=== PATIENT | female | born 1970 | race Caucasian/White ===

== ENCOUNTER 2017-12-28 07:07 | Day surgery (SDC) | payer BC ==
[~2017-12-28 07:07] MED LIST: Sodium Chloride 0.9% 10 ML Syringe FLUSH PRN; Sodium Chloride 0.9% 2.5 ML Syringe FLUSH PRN; ceFAZolin 2 GM in Premix Bag 1 BAG IV ONE
[2017-12-28] MEDS ORDERED: Rocuronium 10 MG/ML 10 ML Syringe ONE (07:09)
[2017-12-28] MEDS ORDERED: Dexamethasone 4 MG/ML 5 ML MDV ONE (07:09)
[2017-12-28] MEDS ORDERED: fentaNYL 250 MCG/5 ML SDV ONE (07:09)
[2017-12-28] MEDS ORDERED: Phenylephrine/Normal Saline 100 MCG/ML 10 ML Syringe ONE (07:09)
[2017-12-28] MEDS ORDERED: Lidocaine 2% 5 ML SDV ONE (07:09)
[2017-12-28] MEDS ORDERED: ePHEDrine 50 MG/ML SDV ONE (07:09)
[2017-12-28] MEDS ORDERED: Ketorolac 30 MG/ML SDV ONE (07:09)
[2017-12-28] MEDS ORDERED: Propofol 200 MG/20 ML SDV ONE (07:09)
[2017-12-28] MEDS ORDERED: Ondansetron 4 MG/2 ML SDV ONE (07:09)
[2017-12-28] MEDS ORDERED: Midazolam 1 MG/ML 2 ML SDV ONE (07:10)
[2017-12-28] MEDS: Lactated Ringers 1,000 ML IV SCH ×2 (07:27→20:44)
--- NOTE | 2017-12-28 07:27 | PCM.PREANE ---
Preanesthetic Assessment - Anesthesia/Transfusion/Family Hx Anesthesia History: Prior Anesthesia Without Reaction Family History of Anesthesia Reaction: No Transfusion History: No Prior Transfusion(s) - Review of Systems General: No Symptoms Pulmonary: No Symptoms Cardiovascular: No Symptoms Gastrointestinal: No Symptoms Neurological: No Symptoms Other: Reports: None - Physical Assessment NPO Status Date: 12/27/17 Height: 1.64 m Weight: 92.079 kg ASA Class: 1 Mental Status: Alert & Oriented x3 Airway Class: Mallampati = 1 Dentition: Reports: Normal Dentition ROM/Head Extension: Full Lungs: Clear to Auscultation Cardiovascular: Regular Rate - Lab Values: Laboratory Last Values WBC 7.96 K/uL (4.0-11.0) 12/27/17 16:37 RBC 4.57 M/uL (4.30-5.90) 12/27/17 16:37 Hgb 13.9 g/dL (12.0-16.0) 12/27/17 16:37 Hct 40.3 % (36.0-46.0) 12/27/17 16:37 MCV 88.2 fL (80.0-98.0) 12/27/17 16:37 MCH 30.4 pg (27.0-32.0) 12/27/17 16:37 MCHC 34.5 g/dL (31.0-37.0) 12/27/17 16:37 RDW Std Deviation 40.6 fl (28.0-62.0) 12/27/17 16:37 RDW Coeff of Adele 13 % (11.0-15.0) 12/27/17 16:37 Plt Count 267 K/uL (150-400) 12/27/17 16:37 MPV 10.50 fL (7.40-12.00) 12/27/17 16:37 Nucleated RBC % 0.0 /100WBC 12/27/17 16:37 Nucleated RBCs # 0 K/uL 12/27/17 16:37 Sodium 140 mmol/L (136-145) 12/27/17 16:37 Potassium 3.6 mmol/L (3.5-5.1) 12/27/17 16:37 Chloride 105 mmol/L (98-107) 12/27/17 16:37 Carbon Dioxide 27.0 mmol/L (21.0-32.0) 12/27/17 16:37 BUN 15 mg/dL (7.0-18.0) 12/27/17 16:37 Creatinine 1.0 mg/dL (0.6-1.0) 12/27/17 16:37 Est Cr Clr Drug Dosing 60.00 mL/min 12/27/17 16:37 Estimated GFR (MDRD) 58.9 ml/min 12/27/17 16:37 Glucose 105 mg/dL (74-106) 12/27/17 16:37 Calcium 9.2 mg/dL (8.5-10.1) 12/27/17 16:37 HCG, Qual NEGATIVE (NEG) 12/27/17 16:37 Blood Type O POSITIVE 12/27/17 16:37 Antibody Screen NEGATIVE 12/27/17 16:37 - Allergies Allergies/Adverse Reactions: Allergies Allergy/AdvReac Type Severity Reaction Status Date / Time erythromycin base Allergy Nausea and Verified 12/24/17 09:35 Vomiting - Blood Blood Available: Yes - Anesthesia Plan Pre-Op Medication Ordered: None - Acknowledgements Anesthesia Type Planned: General Anesthesia Pt an Appropriate Candidate for the Planned Anesthesia: Yes Alternatives and Risks of Anesthesia Discussed w Pt/Guardian: Yes Pt/Guardian Understands and Agrees with Anesthesia Plan: Yes PreAnesthesia Questionnaire HEENT History: Reports: Other (See Below) Other HEENT History: wears glasses Neurological History: Reports: Other (See Below) Other Neuro History: hx of motion sickness Endocrine/Metabolic History: Reports: Obesity/BMI 30+ - Past Surgical History Female Surgical History: Reports: Other (See Below) Other Female Surgeries/Procedures: TVT - SUBSTANCE USE Smoking Status *Q: Never Smoker Recreational Drug Use History: No - HOME MEDS Home Medications: Home Meds . [No Known Home Meds] 12/24/17 [History] - CURRENT (IN HOUSE) MEDS Current Meds: Current Medications Lactated Ringer's (Ringers, Lactated) 1,000 mls @ 125 mls/hr IV ASDIRECTED SYLVESTER Cefazolin Sodium/Dextrose 2 gm (/ Premix) 50 mls @ 50 mls/hr IV ONETIME ONE Stop: 12/28/17 08:59 Sodium Chloride (Saline Flush) 10 ml FLUSH ASDIRECTED PRN PRN Reason: Keep Vein Open Sodium Chloride (Saline Flush) 2.5 ml FLUSH ASDIRECTED PRN PRN Reason: Keep Vein Open Discontinued Medications Dexamethasone (Dexamethasone) Confirm Administered Dose 20 mg .ROUTE .STK-MED ONE Stop: 12/28/17 07:10 Ephedrine Sulfate (Ephedrine Sulfate) Confirm Administered Dose 50 mg .ROUTE .STK-MED ONE Stop: 12/28/17 07:10 Fentanyl (Sublimaze) Confirm Administered Dose 250 mcg .ROUTE .STK-MED ONE Stop: 12/28/17 07:10 Cefazolin Sodium/Dextrose 2 gm (/ Premix) 50 mls @ 100 mls/hr IV ONETIME ONE Stop: 12/27/17 19:29 Ketorolac Tromethamine (Toradol) Confirm Administered Dose 30 mg .ROUTE .STK- MED ONE Stop: 12/28/17 07:10 Lidocaine (Xylocaine-Mpf 2%) Confirm Administered Dose 5 ml .ROUTE .STK-MED ONE Stop: 12/28/17 07:10 Midazolam HCl (Versed 1 Mg/Ml) Confirm Administered Dose 2 mg .ROUTE .STK-MED ONE Stop: 12/28/17 07:11 Ondansetron HCl (Zofran) Confirm Administered Dose 4 mg .ROUTE .STK-MED ONE Stop: 12/28/17 07:10 Phenylephrine HCl (Phenylephrine In Ns 100 Mcg/Ml) Confirm Administered Dose 1 mg .ROUTE .STK-MED ONE Stop: 12/28/17 07:10 Propofol (Diprivan 20 Ml) Confirm Administered Dose 200 mg .ROUTE .STK-MED ONE Stop: 12/28/17 07:10 Rocuronium [place] (Zemuron) Confirm Administered Dose 100 mg .ROUTE .STK-MED ONE Stop: 12/28/17 07:10
[2017-12-28] MEDS ORDERED: Scopolamine 1.5 MG Transdermal Patch TRDERM PRN (07:28)
[2017-12-28] MEDS ORDERED: Scopolamine 1.5 MG Transdermal Patch ONE (07:33)
[2017-12-28] MEDS ORDERED: Fluorescein 5 ML Vial ONE (07:51)
[2017-12-28] MEDS ORDERED: Vasopressin 20 Units/1 ML MDV ONE (08:00)
[2017-12-28] MEDS ORDERED: ceFAZolin 2 GM in Premix Bag 1 BAG IV ONE (08:00)
[2017-12-28] MEDS ORDERED: Furosemide 40 MG/4 ML VIAL ONE (10:45)
[2017-12-28] MEDS ORDERED: Ketorolac 30 MG/ML SDV IVPUSH ONE (11:22)
[2017-12-28] MEDS ORDERED: Ondansetron 4 MG/2 ML SDV IVPUSH PRN (11:22)
[2017-12-28] MEDS ORDERED: Acetaminophen/oxyCODONE 325-5 MG Tab PO PRN ×2 (11:22)
[2017-12-28] MEDS ORDERED: Morphine 10 MG/ML Syringe IVPUSH PRN (11:22)
[2017-12-28] MEDS ORDERED: Ketorolac 30 MG/ML SDV IVPUSH PRN (11:22)
[2017-12-28] MEDS ORDERED: Promethazine 25 MG/ML SDV IM PRN (11:22)
--- NOTE | 2017-12-28 11:34 | PCM.OPNOTE ---
- General Post-Op/Procedure Note Date of Surgery/Procedure: 12/28/17 Operative Procedure(s): Total vaginal hysterectomy , Bilateral salphingectomy and cytoscopy Findings: EUA showed normal sized anteverted uterus Cytoscopy - Intact bladder , bilateral ureter jets Pre Op Diagnosis: Abnormal uterine bleeding Post-Op Diagnosis: Abnormal uterine bleeding Anesthesia Technique: General LMA Primary Surgeon: Karen Barbosa Secondary Surgeon: Evita Thompson Anesthesia Provider: Reji Arauz Pathology: Uterus , tubes Fluid Replacement, Intraop: 1,500 Output, Urine Amount: 400 EBL in mLs: 250 Complications: None Condition: Good Free Text/Narrative:: Total vaginal hysterectomy, Bilateral salphingectomy and cystoscopy done without difficulty
[2017-12-28] MEDS: HYDROmorphone 2 MG/ML SDV IVPUSH ONE ×3 (11:55→12:14)
[2017-12-28] MEDS: cefOXitin 2 GM in Premix Bag 1 BAG IV SCH ×2 (13:26→20:43)
--- NOTE | 2017-12-28 14:59 | PCM.POSTAN ---
POST ANESTHESIA ASSESSMENT - MENTAL STATUS Mental Status: Alert, Oriented - RESPIRATORY Respiratory Status: Respiratory Rate WNL, Airway Patent, O2 Saturation Stable - CARDIOVASCULAR CV Status: Pulse Rate WNL - GASTROINTESTINAL GI Status: No Symptoms - PAIN Pain Score: 3 - POST OP HYDRATION Hydration Status: Adequate & Stable - OBSERVATIONS Free Text/Narrative:: no anesthesia problems
[2017-12-28] MEDS: Metoclopramide 10 MG/2 ML SDV IVPUSH SCH (15:07)
[2017-12-28] MEDS: Acetaminophen 1,000 MG in Premix Bag 1 BAG IV SCH ×2 (15:10→21:31)
--- NOTE | 2017-12-28 23:55 | OR ---
SURGEON: VARSHA SERRANO DATE OF PROCEDURE: 12/28/2017 PREOPERATIVE DIAGNOSIS: A 47-year-old, para 3 with abnormal uterine bleeding, desiring hysterectomy. The patient declined any form of management apart from hysterectomy. POSTOPERATIVE DIAGNOSIS: A 47-year-old, para 3 with abnormal uterine bleeding, desiring hysterectomy. The patient declined any form of management apart from hysterectomy. PROCEDURE: Total vaginal hysterectomy, bilateral salpingectomy, and cystoscopy. ESTIMATED BLOOD LOSS: 250. INTRAVENOUS FLUID: 1500. URINE OUTPUT: 400, clear urine at the end of the procedure. SPECIMEN: Uterus to pathology. . FINDINGS: Examination under anesthesia showed a normal-sized anteverted uterus. No adnexal masses.Cytoscopy show intact bladder with bilateral ureteral jets DESCRIPTION OF PROCEDURE: The patient was taken to the operating room with IV fluids running and pneumatic stockings applied to the lower extremities. General anesthesia was performed without difficulty. The patient was placed in dorsal lithotomy position with Gautam stirrups. The buttocks were positioned slightly over the edge of the table. Examination under anesthesia revealed the findings noted above. The patient was prepared and draped. Young catheter was inserted, and bladder was emptied. A weighted speculum was placed into the vagina. The anterior and posterior cervix was grasped with Angel tenaculum . A circumferential incision was made with the Bovie at the cervical vaginal junction. The incision was carried down into the pericervical junction allowing the cervix to separate from the vaginal mucosa. The bleeding spots were coagulated. The posterior cul-de-sac was entered into sharply with the Lopez scissors with the tip pointing towards the uterus. Clear peritoneal fluid was noted. The weighted speculum was then removed and a long tenaculum was inserted into the cul-de-sac. The uterosacral ligaments were clamped with the Maria clamps, cut, and suture ligated, then followed with the clamping , cutting and suturing of the cardinal ligaments. Significant uterine descent was noted. Then, attention was turned to entering the anterior peritoneum with gentle traction towards the cervix. The peritoneum was identified, picked up, and sharply entered. A right angle retractor was inserted into the vesicouterine space. The uterine vessels were then identified, clamped, and caught. The pedicles were then doubly ligated. The round, broad ligaments were then clamped, caught, and suture ligated. Finally, the ovarian ligament and the fallopian tubes were clamped, caught, and doubly ligated. The uterus was removed from the vagina. The fallopian tubes were then identified, and it was clamped and suture ligated. Examination of the pedicles revealed good hemostasis. The vaginal angles were sutured to the uterosacral ligament. The vaginal cuff was closed with a continuous interlocking suture in a vertical pattern. Hemostasis was noted at the end of the procedure. Attention was then paid to the bladder where cystoscopy was performed. Two bilateral jets were noted, and the bladder was noted to be intact. The vagina was inspected again and was noted to be hemostatic. All instrument and pad counts were correct x2. The patient was taken to the recovery room in stable condition. STEVE [place] /[id number] MARBELLA
[2017-12-29] MEDS: Metoclopramide 10 MG/2 ML SDV IVPUSH SCH ×2 (00:24→08:07)
[2017-12-29] MEDS: Acetaminophen 1,000 MG in Premix Bag 1 BAG IV SCH (03:05)
--- NOTE | 2017-12-29 07:07 | PCM.SURGPN ---
- General Info Date of Service: 12/29/17 Date of Surgery/Procedure: 12/28/17 POD#: 1 Post-Op Diagnosis: Total vaginal hysterectomy and bilateral salphingectomy Functional Status: Reports: Pain Controlled, Tolerating Diet, Ambulating, Urinating - Review of Systems General: Reports: No Symptoms HEENT: Reports: No Symptoms Pulmonary: Reports: No Symptoms Cardiovascular: Reports: No Symptoms Gastrointestinal: Reports: No Symptoms Genitourinary: Reports: No Symptoms Musculoskeletal: Reports: No Symptoms Skin: Reports: No Symptoms Neurological: Reports: No Symptoms Psychiatric: Reports: No Symptoms - Patient Data Vitals - Most Recent: Last Vital Signs Temp 37.2 C 12/29/17 05:35 Pulse 72 12/29/17 05:35 Resp 19 12/29/17 05:35 BP 116/55 L 12/29/17 05:35 Pulse Ox 97 12/29/17 05:35 Weight - Most Recent: 92.079 kg I&O - Last 24 Hours: Intake & Output 12/28/17 12/29/17 12/29/17 22:59 06:59 14:59 Intake Total 400 Output Total 140 Balance 260 Lab Results Last 24 Hrs: Laboratory Results - last 24 hr 12/29/17 12/29/17 Range/Units 05:25 05:25 WBC 12.77 H (4.0-11.0) K/uL RBC 3.70 L (4.30-5.90) M/uL Hgb 11.3 L (12.0-16.0) g/dL Hct 33.0 L (36.0-46.0) % MCV 89.2 (80.0-98.0) fL MCH 30.5 (27.0-32.0) pg MCHC 34.2 (31.0-37.0) g/dL RDW Std Deviation 40.4 (28.0-62.0) fl RDW Coeff of Adele 13 (11.0-15.0) % Plt Count 205 (150-400) K/uL MPV 9.90 (7.40-12.00) fL Neut % (Auto) 70.4 (48.0-80.0) % Lymph % (Auto) 22.1 (16.0-40.0) % [place] % (Auto) 7.3 (0.0-15.0) % Eos % (Auto) 0.1 (0.0-7.0) % Baso % (Auto) 0.1 (0.0-1.5) % Neut # (Auto) 9.0 H (1.4-5.7) K/uL Lymph # (Auto) 2.8 H (0.6-2.4) K/uL [place] # (Auto) 0.9 H (0.0-0.8) K/uL Eos # (Auto) 0.0 (0.0-0.7) K/uL Baso # (Auto) 0.0 (0.0-0.1) K/uL Nucleated RBC % 0.0 /100WBC Nucleated RBCs # 0 K/uL Sodium 142 (136-145) mmol/L Potassium 4.1 (3.5-5.1) mmol/L Chloride 107 (98-107) mmol/L Carbon Dioxide 29.2 (21.0-32.0) mmol/L BUN 12 (7.0-18.0) mg/dL Creatinine 1.1 H (0.6-1.0) mg/dL Est Cr Clr Drug Dosing 54.55 mL/min Estimated GFR (MDRD) 52.8 ml/min Glucose 115 H (74-106) mg/dL Calcium 8.4 L (8.5-10.1) mg/dL Med Orders - Current: Current Medications Lactated Ringer's (Ringers, Lactated) 1,000 mls @ 125 mls/hr IV ASDIRECTED [facility] Last Admin: 12/28/17 20:44 Dose: 125 mls/hr Ketorolac Tromethamine (Toradol) 30 mg IVPUSH Q6H PRN PRN Reason: Pain (severe 7-10) Stop: 01/02/18 11:23 Last Admin: 12/28/17 13:03 Dose: 30 mg Metoclopramide HCl (Reglan) 10 mg IVPUSH Q8H [facility] Last Admin: 12/29/17 00:24 Dose: 10 mg Morphine Sulfate (Morphine) 4 mg IVPUSH Q2H PRN PRN Reason: Pain (severe 7-10) Ondansetron HCl (Zofran) 4 mg IVPUSH Q6H PRN PRN Reason: Nausea/Vomiting Last Admin: 12/28/17 13:11 Dose: 4 mg Oxycodone/Acetaminophen (Percocet 325-5 Mg) 1 tab PO Q4H PRN PRN Reason: Pain (moderate 4-6) Oxycodone/Acetaminophen (Percocet 325-5 Mg) 2 tab PO Q4H PRN PRN Reason: Pain (moderate 4-6) Promethazine HCl (Phenergan) 25 mg IM Q6H PRN PRN Reason: Nausea/Vomiting Scopolamine (Transderm-Scop) 1.5 mg TRDERM Q72H PRN PRN Reason: Nausea/Vomiting Last Admin: 12/28/17 07:34 Dose: 1.5 mg Sodium Chloride (Saline Flush) 10 ml FLUSH ASDIRECTED PRN PRN Reason: Keep Vein Open Sodium Chloride (Saline Flush) 2.5 ml FLUSH ASDIRECTED PRN PRN Reason: Keep Vein Open Discontinued Medications Dexamethasone (Dexamethasone) Confirm Administered Dose 20 mg .ROUTE .STK-MED ONE Stop: 12/28/17 07:10 Ephedrine Sulfate (Ephedrine Sulfate) Confirm Administered Dose 50 mg .ROUTE .STK-MED ONE Stop: 12/28/17 07:10 Fentanyl (Sublimaze) Confirm Administered Dose 250 mcg .ROUTE .STK-MED ONE Stop: 12/28/17 07:10 Fluorescein Sodium ([place]-Fluor) Confirm Administered Dose 5 ml .ROUTE .STK-MED ONE Stop: 12/28/17 07:52 Furosemide (Lasix) Confirm Administered Dose 40 mg .ROUTE .STK-MED ONE Stop: 12/28/17 10:46 Hydromorphone HCl (Dilaudid) 2 mg IVPUSH ONETIME ONE Stop: 12/28/17 11:37 Last Admin: 12/28/17 12:14 Dose: 0.2 mg Cefazolin Sodium/Dextrose 2 gm (/ Premix) 50 mls @ 100 mls/hr IV ONETIME ONE Stop: 12/27/17 19:29 Last Admin: 12/28/17 12:48 Dose: Not Given Cefazolin Sodium/Dextrose 2 gm (/ Premix) 50 mls @ 50 mls/hr IV ONETIME ONE Stop: 12/28/17 08:59 Last Admin: 12/28/17 12:43 Dose: Not Given Cefoxitin Sodium 2 gm/ Premix 50 mls @ 100 mls/hr IV Q6H [facility] Stop: 12/28/17 20:29 Last Admin: 12/28/17 20:43 Dose: 100 mls/hr Acetaminophen 1,000 mg/ Premix 100 mls @ 400 mls/hr IV Q6H [facility] Stop: 12/29/17 03:14 Last Admin: 12/29/17 03:05 Dose: 400 mls/hr Ketorolac Tromethamine (Toradol) Confirm Administered Dose 30 mg .ROUTE .STK- MED ONE Stop: 12/28/17 07:10 Ketorolac Tromethamine (Toradol) 30 mg IVPUSH ONETIME ONE Stop: 12/28/17 11:23 Last Admin: 12/28/17 12:46 Dose: Not Given Lidocaine (Xylocaine-Mpf 2%) Confirm Administered Dose 5 ml .ROUTE .STK-MED ONE Stop: 12/28/17 07:10 Midazolam HCl (Versed 1 Mg/Ml) Confirm Administered Dose 2 mg .ROUTE .STK-MED ONE Stop: 12/28/17 07:11 Ondansetron HCl (Zofran) Confirm Administered Dose 4 mg .ROUTE .STK-MED ONE Stop: 12/28/17 07:10 Phenylephrine HCl (Phenylephrine In Ns 100 Mcg/Ml) Confirm Administered Dose 1 mg .ROUTE .STK-MED ONE Stop: 12/28/17 07:10 Propofol (Diprivan 20 Ml) Confirm Administered Dose 200 mg .ROUTE .STK-MED ONE Stop: 12/28/17 07:10 Rocuronium [place] (Zemuron) Confirm Administered Dose 100 mg .ROUTE .STK-MED ONE Stop: 12/28/17 07:10 Scopolamine (Transderm-Scop) Confirm Administered Dose 1.5 mg .ROUTE .STK-MED ONE Stop: 12/28/17 07:34 Last Admin: 12/28/17 12:47 Dose: Not Given Vasopressin (Vasopressin) Confirm Administered Dose 20 units .ROUTE .STK-MED ONE Stop: 12/28/17 08:01 - Exam Wound/Incisions: No Drainage General: Alert, Oriented HEENT: Pupils Equal Lungs: Clear to Auscultation Cardiovascular: Regular Rate, Regular Rhythm GI/Abdominal Exam: Normal Bowel Sounds Extremities: Normal Inspection Skin: Warm Psy/Mental Status: Alert - Problem List & Annotations (1) S/P vaginal hysterectomy SNOMED Code(s): 786506288, 493832216 Code(s): Z90.710 - ACQUIRED ABSENCE OF BOTH CERVIX AND UTERUS Status: Acute Current Visit: Yes - Problem List Review Problem List Initiated/Reviewed/Updated: Yes - My Orders Last 24 Hours: Active Orders 24 hr Category Date Time Status Patient Status [ADT] Routine ADT 12/28/17 07:00 Active Patient Status [ADT] Routine ADT 12/28/17 11:23 Active Notify Provider Intake and Out [RC] ASDIRECTED Care 12/28/17 11:23 Active Notify Provider Vital Signs [RC] ASDIRECTED Care 12/28/17 11:23 Active Oxygen Therapy [RC] ASDIRECTED Care 12/28/17 11:23 Active RT Incentive Spirometry [RC] Q2HWA Care 12/28/17 11:23 Active Up With Assistance [RC] PER UNIT ROUTINE Care 12/28/17 11:23 Active Up ad Gladys [RC] PER UNIT ROUTINE Care 12/28/17 11:23 Active Urinary Catheter Removal [RC] Per Unit Routine Care 12/28/17 11:23 Active Verify Patient Consent Obtain [RC] PER UNIT ROUTINE Care 12/28/17 07:00 Active Vital Signs [RC] PER UNIT ROUTINE Care 12/28/17 08:00 Active Regular Diet [DIET] Diet 12/28/17 Dinner Active Acetaminophen/oxyCODONE [Percocet 325-5 MG] Med 12/28/17 11:22 Active 1 tab PO Q4H PRN Acetaminophen/oxyCODONE [Percocet 325-5 MG] Med 12/28/17 11:22 Active 2 tab PO Q4H PRN Ketorolac [Toradol] Med 12/28/17 11:22 Active 30 mg IVPUSH Q6H PRN Lactated Ringers [Ringers, Lactated] 1,000 ml Med 12/28/17 07:00 Active IV ASDIRECTED Metoclopramide [Reglan] Med 12/28/17 16:00 Active 10 mg IVPUSH Q8H Morphine Med 12/28/17 11:22 Active 4 mg IVPUSH Q2H PRN Ondansetron [Zofran] Med 12/28/17 11:22 Active 4 mg IVPUSH Q6H PRN Promethazine [Phenergan] Med 12/28/17 11:22 Active 25 mg IM Q6H PRN Scopolamine [Transderm-Scop] Med 12/28/17 07:28 Active 1.5 mg TRDERM Q72H PRN Peripheral IV Discontinue [OM.PC] Routine Oth 12/28/17 11:23 Ordered Peripheral IV Insertion Adult [OM.PC] Urgent Oth 12/28/17 08:00 Ordered Sequential Compression Device [OM.PC] Per Unit Routine Oth 12/28/17 08:00 Ordered Sequential Compression Device [OM.PC] Per Unit Routine Oth 12/28/17 11:23 Ordered Resuscitation Status Routine Resus Stat 12/28/17 11:22 Ordered Medication Orders Lactated Ringer's (Ringers, Lactated) 1,000 mls @ 125 mls/hr IV ASDIRECTED [facility] Last Admin: 12/28/17 20:44 Dose: 125 mls/hr Infusion: 12/28/17 15:27 Dose: 125 mls/hr Admin: 12/28/17 07:27 Dose: 125 mls/hr Ketorolac Tromethamine (Toradol) 30 mg IVPUSH Q6H PRN PRN Reason: Pain (severe 7-10) Stop: 01/02/18 11:23 Last Admin: 12/28/17 13:03 Dose: 30 mg Metoclopramide HCl (Reglan) 10 mg IVPUSH Q8H [facility] Last Admin: 12/29/17 00:24 Dose: 10 mg Admin: 12/28/17 15:07 Dose: 10 mg Morphine Sulfate (Morphine) 4 mg IVPUSH Q2H PRN PRN Reason: Pain (severe 7-10) Ondansetron HCl (Zofran) 4 mg IVPUSH Q6H PRN PRN Reason: Nausea/Vomiting Last Admin: 12/28/17 13:11 Dose: 4 mg Oxycodone/Acetaminophen (Percocet 325-5 Mg) 1 tab PO Q4H PRN PRN Reason: Pain (moderate 4-6) Oxycodone/Acetaminophen (Percocet 325-5 Mg) 2 tab PO Q4H PRN PRN Reason: Pain (moderate 4-6) Promethazine HCl (Phenergan) 25 mg IM Q6H PRN PRN Reason: Nausea/Vomiting Scopolamine (Transderm-Scop) 1.5 mg TRDERM Q72H PRN PRN Reason: Nausea/Vomiting Last Admin: 12/28/17 07:34 Dose: 1.5 mg Sodium Chloride (Saline Flush) 10 ml FLUSH ASDIRECTED PRN PRN Reason: Keep Vein Open Sodium Chloride (Saline Flush) 2.5 ml FLUSH ASDIRECTED PRN PRN Reason: Keep Vein Open - Assessment Assessment (Free Text/Narrative):: 47 s/p TVH BS POD 1, stable - Plan Plan (Free Text/Narrative):: Discharge home
--- NOTE | 2017-12-29 07:47 | PCM48HPAN ---
Post Anesthesia Note - EVALUATION WITHIN 48HRS OF ANESTHETIC Vital Signs in Normal Range: Yes Patient Participated in Evaluation: Yes Respiratory Function Stable: Yes Airway Patent: Yes Cardiovascular Function Stable: Yes Hydration Status Stable: Yes Pain Control Satisfactory: Yes Nausea and Vomiting Control Satisfactory: Yes Mental Status Recovered: Yes Resp Rate: 19
== END 2017-12-29 09:30 | disposition home or self-care (01) ==
LOC: MW.SDS 07:07 → MW.MS 08:26 → MW.SDS 12-29 09:30
PROVIDERS: ATTEND Obstetrics & Gynecology
DX: N80.0 Endometriosis of uterus (principal); K59.09 Other constipation; E66.9 Obesity, unspecified; Z68.34 Body mass index [BMI] 34.0-34.9, adult; Z88.8 Allergy status to other drugs, medicaments and biological substances
CPT/HCPCS: 36415; 58262; 80048; 84703; 85025; 85027; 86850; 86900; 86901; A9270; J1100; J1170; J1885; J1940; J2250; J2405; J2765; J3010; J7120; J2704

== ENCOUNTER 2020-01-23 08:31 | Day surgery (SDC) | payer BC, OTHER ==
[~2020-01-23 08:31] MED LIST changes: +Lactated Ringers 1,000 ML IV SCH; +Sodium Chloride 0.9% 10 ML SDV IV PRN; -ceFAZolin 2 GM in Premix Bag 1 BAG IV ONE
--- NOTE | 2020-01-23 08:55 | PCM.PREANE ---
Preanesthetic Assessment - Anesthesia/Transfusion/Family Hx Anesthesia History: Prior Anesthesia Without Reaction Family History of Anesthesia Reaction: No Transfusion History: No Prior Transfusion(s) Intubation History: Unknown - Review of Systems General: No Symptoms Pulmonary: No Symptoms Cardiovascular: No Symptoms Gastrointestinal: No Symptoms, Other (screening colonoscopy) Neurological: No Symptoms Other: Reports: None - Physical Assessment Height: 5 ft 4 in Weight: 95.708 kg ASA Class: 2 Mental Status: Alert & Oriented x3 Airway Class: Mallampati = 2 Dentition: Reports: Normal Dentition Thyro-Mental Finger Breadths: 3 Mouth Opening Finger Breadths: 3 ROM/Head Extension: Full Lungs: Clear to Auscultation, Normal Respiratory Effort Cardiovascular: Regular Rate, Regular Rhythm - Allergies Allergies/Adverse Reactions: Allergies Allergy/AdvReac Type Severity Reaction Status Date / Time erythromycin base Allergy Nausea and Verified 01/18/20 14:00 Vomiting - Blood Blood Available: No - Anesthesia Plan Pre-Op Medication Ordered: None - Acknowledgements Anesthesia Type Planned: MAC Pt an Appropriate Candidate for the Planned Anesthesia: Yes Alternatives and Risks of Anesthesia Discussed w Pt/Guardian: Yes Pt/Guardian Understands and Agrees with Anesthesia Plan: Yes PreAnesthesia Questionnaire HEENT History: Reports: Other (See Below) Other HEENT History: wears glasses/contacts Gastrointestinal History: Reports: Other (See Below) Other Gastrointestinal History: occasional heartburn Musculoskeletal History: Reports: Fracture Other Musculoskeletal History: hx of fx toe Neurological History: Reports: Other (See Below) Other Neuro History: hx of motion sickness Endocrine/Metabolic History: Reports: Obesity/BMI 30+ (BMI 36.2) - Past Surgical History Head Surgeries/Procedures: Reports: None Female Surgical History: Reports: Cervical Conization, Hysterectomy, Salpingo -Oophorectomy, Other (See Below) Other Female Surgeries/Procedures: TVT - SUBSTANCE USE Smoking Status *Q: Never Smoker Recreational Drug Use History: No - HOME MEDS Home Medications: Home Meds . [No Known Home Meds] 12/24/17 [History] - CURRENT (IN HOUSE) MEDS Current Meds: Current Medications Lactated Ringer's (Ringers, Lactated) 1,000 mls @ 125 mls/hr IV ASDIRECTED SYLVESTER Discontinued Medications Lactated Ringer's (Ringers, Lactated) 1,000 mls @ 125 mls/hr IV ASDIRECTED [place] Sodium Chloride (Saline Flush) 10 ml FLUSH ASDIRECTED PRN PRN Reason: Keep Vein Open Sodium Chloride (Saline Flush) 2.5 ml FLUSH ASDIRECTED PRN PRN Reason: Keep Vein Open Sodium Chloride (Saline Flush) 10 ml FLUSH ASDIRECTED PRN PRN Reason: Keep Vein Open Sodium Chloride (Saline Flush) 2.5 ml FLUSH ASDIRECTED PRN PRN Reason: Keep Vein Open Sodium Chloride (Normal Saline) 10 ml IV ASDIRECTED PRN PRN Reason: IV Use
[2020-01-23] MEDS ORDERED: Midazolam 1 MG/ML 2 ML SDV ONE (11:09)
[2020-01-23] MEDS ORDERED: Propofol 200 MG/20 ML SDV ONE ×2 (11:09→11:37)
--- NOTE | 2020-01-23 12:05 | PCM.OPNOTE ---
- General Post-Op/Procedure Note Date of Surgery/Procedure: 01/23/20 Operative Procedure(s): Screening colonoscopy with polypectomy Findings: ascending colon polyp, sigmoid colon polyp Pre Op Diagnosis: Screening colonoscopy Post-Op Diagnosis: sigmoid colon polyp, ascending colon polyp Anesthesia Technique: [facility] [place] [place] Primary Surgeon: Barb Price Condition: Good
--- NOTE | 2020-01-23 12:15 | PCM.POSTAN ---
POST ANESTHESIA ASSESSMENT - MENTAL STATUS Mental Status: Alert, Oriented - VITAL SIGNS Vital Signs: Last Vital Signs Temp 36.8 C 01/23/20 08:50 Pulse 102 H 01/23/20 12:09 Resp 12 01/23/20 12:09 BP 139/76 01/23/20 12:09 Pulse Ox 97 01/23/20 12:09 - RESPIRATORY Respiratory Status: Respiratory Rate WNL, Airway Patent, O2 Saturation Stable - CARDIOVASCULAR CV Status: Pulse Rate WNL, Blood Pressure Stable - GASTROINTESTINAL GI Status: No Symptoms - PAIN Pain Score: 0 - POST OP HYDRATION Hydration Status: Adequate & Stable - OBSERVATIONS Free Text/Narrative:: No anesthesia problems.
--- NOTE | 2020-01-23 13:10 | PCM48HPAN ---
Post Anesthesia Note - EVALUATION WITHIN 48HRS OF ANESTHETIC Vital Signs in Normal Range: Yes Patient Participated in Evaluation: Yes Respiratory Function Stable: Yes Airway Patent: Yes Cardiovascular Function Stable: Yes Hydration Status Stable: Yes Pain Control Satisfactory: Yes Nausea and Vomiting Control Satisfactory: Yes Mental Status Recovered: Yes Vital Signs: Last Vital Signs Temp 36.8 C 01/23/20 08:50 Pulse 102 H 01/23/20 12:09 Resp 12 01/23/20 12:09 BP 139/76 01/23/20 12:09 Pulse Ox 97 01/23/20 12:09 - COMMENTS/OBSERVATIONS Free Text/Narrative:: No anesthesia problems.
--- NOTE | 2020-01-23 16:31 | OR ---
SURGEON: BARB PRICE MD DATE OF PROCEDURE: 01/23/2020 PREOPERATIVE DIAGNOSIS: Screening colonoscopy. POSTOPERATIVE DIAGNOSES: 1. Sigmoid colon polyp. 2. Ascending colon polyp. PROCEDURE PERFORMED: Screening colonoscopy with polypectomy. PRIMARY SURGEON: Barb Price MD. ANESTHESIA: MAC. INSTRUMENT USED: Olympus colonoscope. EXTENT OF EXAM: To the cecum. PREPARATION: Good. LIMITATIONS: None. INDICATIONS FOR EXAMINATION: The patient is a 49-year-old female who presents for screening colonoscopy. The patient and I discussed the procedure, expected perioperative course, and risks including bleeding, infection, or damage to surrounding structures including perforation. She verbalized understanding and wished to proceed. PROCEDURE IN DETAIL: The patient was brought into the endoscopy suite and placed on the OR cart in a left lateral decubitus position. A time-out was completed verifying the patient's name, age, date of , allergies, and procedure to be performed. Monitored anesthesia care was induced and continuous oxygen was provided via nasal cannula throughout the procedure. After adequate sedation was achieved, a digital rectal exam was performed. The exam was within normal limits. A well- lubricated colonoscope was inserted in the rectum and advanced under direct visualization to the level of the cecum. The cecum was identified by both visual and anatomic landmarks. A photograph was taken of the cecal cap, however, due to looping of the scope more proximally, I was unable to retroflex the scope within the cecum. The scope was then fully withdrawn while examining the color, texture, anatomy, and integrity of mucosa from the cecum to the anal canal. The patient was found to have a small sessile polyp within the proximal ascending colon. This was removed in piecemeal fashion using a cold biopsy forceps. The patient was also found to have a sessile polyp within the sigmoid colon. This was removed in piecemeal fashion using a cold biopsy forceps as well. The remainder of the colonic mucosa appeared normal. The scope was brought into the rectum and retroflexed to allow visualization of the anal canal opening. This appeared normal and photograph was taken. The scope was then straightened out and fully withdrawn. Cecum to anus time was 17 minutes. The patient tolerated the procedure well and was transferred to the PACU in stable condition. ENDOSCOPIC DIAGNOSES: 1. Sigmoid colon polyp. 2. Ascending colon polyp. RECOMMENDATIONS: Follow up in clinic in 2 weeks. BONI [place] /[id number]
== END 2020-01-23 12:45 | disposition home or self-care (01) ==
LOC: MW.SDS 08:31
PROVIDERS: ATTEND Surgery
DX: Z12.11 Encounter for screening for malignant neoplasm of colon (principal); D12.2 Benign neoplasm of ascending colon; E66.9 Obesity, unspecified; Z68.36 Body mass index [BMI] 36.0-36.9, adult; Z88.1 Allergy status to other antibiotic agents
CPT/HCPCS: 45380; J2250; J2704; J7120

== ENCOUNTER 2020-06-27 06:45 | Day surgery (SDC) | payer OTHER ==
[~2020-06-27 06:45] MED LIST changes: +ceFAZolin 2 GM in Premix Bag 1 BAG IV ONE
[2020-06-27] MEDS ORDERED: Scopolamine 1.5 MG Transdermal Patch TRDERM PRN (07:09)
--- NOTE | 2020-06-27 07:12 | PCM.PREANE ---
Preanesthetic Assessment - Anesthesia/Transfusion/Family Hx Anesthesia History: Prior Anesthesia Without Reaction Family History of Anesthesia Reaction: No Transfusion History: No Prior Transfusion(s) Intubation History: Unknown - Review of Systems General: No Symptoms Pulmonary: No Symptoms Cardiovascular: No Symptoms Gastrointestinal: No Symptoms, Other (denies pain today) Neurological: No Symptoms Other: Reports: None - Physical Assessment Vital Signs: Last Vital Signs Temp 36.5 C 06/27/20 06:52 Pulse 66 06/27/20 06:52 Resp 16 06/27/20 06:52 BP 140/68 06/27/20 06:52 Pulse Ox 99 06/27/20 06:52 Height: 5 ft 4 in Weight: 97.522 kg ASA Class: 5E Emergency Airway Class: Mallampati = 1 Dentition: Reports: Normal Dentition Thyro-Mental Finger Breadths: 3 Mouth Opening Finger Breadths: 3 ROM/Head Extension: Full Lungs: Clear to Auscultation, Normal Respiratory Effort Cardiovascular: Regular Rate, Regular Rhythm - Allergies Allergies/Adverse Reactions: Allergies Allergy/AdvReac Type Severity Reaction Status Date / Time erythromycin base Allergy Nausea and Verified 06/21/20 07:55 Vomiting - Blood Blood Available: No - Anesthesia Plan Pre-Op Medication Ordered: None - Acknowledgements Anesthesia Type Planned: General Anesthesia Pt an Appropriate Candidate for the Planned Anesthesia: Yes Alternatives and Risks of Anesthesia Discussed w Pt/Guardian: Yes Pt/Guardian Understands and Agrees with Anesthesia Plan: Yes PreAnesthesia Questionnaire HEENT History: Reports: Other (See Below) Other HEENT History: wears glasses/contacts Cardiovascular History: Reports: None Respiratory History: Reports: None, Other (See Below) (h/o lung nodule) Gastrointestinal History: Reports: Colon Polyp, Other (See Below) Other Gastrointestinal History: occasional heartburn, biliary dyskenesia Genitourinary History: Reports: None Musculoskeletal History: Reports: Fracture Other Musculoskeletal History: hx of fx toe Neurological History: Reports: Other (See Below) Other Neuro History: hx of motion sickness Psychiatric History: Reports: None Endocrine/Metabolic History: Reports: Obesity/BMI 30+ (BMI 36.9) Hematologic History: Reports: None Immunologic History: Reports: None Oncologic (Cancer) History: Reports: None Dermatologic History: Reports: None - Infectious Disease History Infectious Disease History: Reports: None - Past Surgical History Head Surgeries/Procedures: Reports: None HEENT Surgical History: Reports: None Cardiovascular Surgical History: Reports: None Respiratory Surgical History: Reports: None GI Surgical History: Reports: Colonoscopy Female Surgical History: Reports: Cervical Conization, Hysterectomy, Salpingo-Oophorectomy, Other (See Below) Other Female Surgeries/Procedures: TVT Endocrine Surgical History: Reports: None Neurological Surgical History: Reports: None Musculoskeletal Surgical History: Reports: None Oncologic Surgical History: Reports: None Dermatological Surgical History: Reports: None - SUBSTANCE USE Tobacco Use Status *Q: Never Tobacco User - HOME MEDS Home Medications: Home Meds . [No Known Home Meds] 12/24/17 [History] - CURRENT (IN HOUSE) MEDS Current Meds: Current Medications Lactated Ringer's (Ringers, Lactated) 1,000 mls @ 125 mls/hr IV ASDIRECTED SYLVESTER Sodium Chloride (Saline Flush) 2.5 ml FLUSH ASDIRECTED PRN PRN Reason: Keep Vein Open Sodium Chloride (Normal Saline) 10 ml IV ASDIRECTED PRN PRN Reason: IV Use Sodium Chloride (Saline Flush) 10 ml FLUSH ASDIRECTED PRN PRN Reason: Keep Vein Open Discontinued Medications Cefazolin Sodium/Dextrose 2 gm (/ Premix) 50 mls @ 100 mls/hr IV ONETIME ONE Stop: 06/24/20 11:31
[2020-06-27] MEDS ORDERED: fentaNYL 250 MCG/5 ML SDV ONE (07:17)
[2020-06-27] MEDS ORDERED: Rocuronium Bromide 50 MG/5 ML Syringe ONE (07:17)
[2020-06-27] MEDS ORDERED: Midazolam 1 MG/ML 2 ML SDV ONE (07:17)
[2020-06-27] MEDS ORDERED: Ondansetron 4 MG/2 ML SDV ONE ×2 (07:17→11:12)
[2020-06-27] MEDS ORDERED: Glycopyrrolate 0.2 MG/ML SDV ONE (07:17)
[2020-06-27] MEDS ORDERED: Lidocaine 2% 5 ML SDV ONE (07:17)
[2020-06-27] MEDS ORDERED: Propofol 200 MG/20 ML SDV ONE (07:17)
[2020-06-27] MEDS ORDERED: Bupivacaine 0.5% 30 ML SDV ONE (07:23)
[2020-06-27] MEDS ORDERED: Dexamethasone 4 MG/ML 5 ML MDV ONE (08:04)
[2020-06-27] MEDS ORDERED: ceFAZolin 1 GM Vial ONE (08:06)
[2020-06-27] MEDS ORDERED: Sodium Chloride 0.9% 20 ML ONE (08:06)
[2020-06-27] MEDS ORDERED: Albuterol 0.083% 2.5 MG/3 ML Neb Soln NEB PRN (08:44)
[2020-06-27] MEDS ORDERED: Naloxone 0.4 MG/ML Syringe IVPUSH PRN (08:44)
[2020-06-27] MEDS ORDERED: 50% Dextrose in Water 50 ML Syringe IVPUSH PRN (08:44)
[2020-06-27] MEDS ORDERED: fentaNYL 100 MCG/2 ML SDV IVPUSH PRN (08:44)
[2020-06-27] MEDS ORDERED: Atropine 0.1 MG/ML 10 ML Syringe IVPUSH PRN ×2 (08:44)
[2020-06-27] MEDS ORDERED: EPINEPHrine 1:10,000 1 MG/10 ML Syringe IVPUSH PRN (08:44)
[2020-06-27] MEDS ORDERED: HYDROmorphone 2 MG/ML Syringe ONE (09:04)
[2020-06-27] MEDS ORDERED: Octyl 2-Cyanoacrylate 1 Tube ONE (09:24)
--- NOTE | 2020-06-27 09:39 | PCM.OPNOTE ---
- General Post-Op/Procedure Note Date of Surgery/Procedure: 06/27/20 Operative Procedure(s): Laparoscopic cholecystectomy Findings: Normal appearing gallbladder with omental adehsions Pre Op Diagnosis: Biliary dyskinesia Post-Op Diagnosis: Biliary dyskinesia Anesthesia Technique: General ET Tube Primary Surgeon: Barb Price Pathology: Gallbladder Fluid Replacement, Intraop: 1,500 Output, Urine Amount: 20 EBL in mLs: 10 Condition: Good
--- NOTE | 2020-06-27 10:37 | PCM.POSTAN ---
POST ANESTHESIA ASSESSMENT - MENTAL STATUS Mental Status: Alert, Oriented - VITAL SIGNS Vital Signs: Last Vital Signs Temp 36.2 C 06/27/20 09:36 Pulse 66 06/27/20 10:31 Resp 10 L 06/27/20 10:31 BP 126/60 06/27/20 10:31 Pulse Ox 95 06/27/20 10:31 - RESPIRATORY Respiratory Status: Respiratory Rate WNL, Airway Patent, O2 Saturation Stable - CARDIOVASCULAR CV Status: Pulse Rate WNL, Blood Pressure Stable - GASTROINTESTINAL GI Status: No Symptoms - PAIN Pain Score: 0 - POST OP HYDRATION Hydration Status: Adequate & Stable - OBSERVATIONS Free Text/Narrative:: No anesthesia problems
[2020-06-27] MEDS ORDERED: Ondansetron 4 MG/2 ML SDV IVPUSH ONE (11:08)
[2020-06-27] MEDS ORDERED: Promethazine 25 MG/ML SDV IM ONE (11:34)
--- NOTE | 2020-06-27 13:09 | PCM48HPAN ---
Post Anesthesia Note - EVALUATION WITHIN 48HRS OF ANESTHETIC Vital Signs in Normal Range: Yes Patient Participated in Evaluation: Yes Respiratory Function Stable: Yes Airway Patent: Yes Cardiovascular Function Stable: Yes Hydration Status Stable: Yes Pain Control Satisfactory: Yes Nausea and Vomiting Control Satisfactory: Yes Mental Status Recovered: Yes Vital Signs: Last Vital Signs Temp 36.0 C L 06/27/20 10:35 Pulse 93 06/27/20 12:05 Resp 14 06/27/20 12:05 BP 102/58 L 06/27/20 12:05 Pulse Ox 96 06/27/20 12:05 - COMMENTS/OBSERVATIONS Free Text/Narrative:: No anesthesia problems
--- NOTE | 2020-06-27 16:51 | OR ---
SURGEON: BARB PRICE MD DATE OF PROCEDURE: 06/27/2020 PREOPERATIVE DIAGNOSIS: Biliary dyskinesia. POSTOPERATIVE DIAGNOSIS: Biliary dyskinesia. PROCEDURE PERFORMED: Laparoscopic cholecystectomy. PRIMARY SURGEON: Barb Price MD ANESTHESIA: General endotracheal anesthesia. FLUIDS: 1500 mL of crystalloid. ESTIMATED BLOOD LOSS: 10 mL. URINE OUTPUT: 20 mL. FINDINGS: Normal-appearing gallbladder with omental adhesions. COMPLICATIONS: None. INDICATIONS: The patient is a 49-year-old female who presented to my clinic with biliary dyskinesia. Her HIDA scan showed an ejection fraction of 0%. I explained the need for a laparoscopic, possible open, cholecystectomy. I explained the procedure, expected perioperative course, and the risks. The patient verbalized understanding and wishes to proceed. PROCEDURE IN DETAIL: The patient was brought into the OR and placed on the OR table in supine position. A time-out was completed verifying the patient's name, age, date of , allergies, and procedure to be performed. General endotracheal anesthesia was induced. The left arm was tucked to the patient's side and a Young catheter placed. The abdomen was prepped and draped in usual standard fashion. I anesthetized the infraumbilical fold with 0.5% Marcaine plain. An 11 blade was used to make an incision along this fold. I used cautery to dissect down to the level of subcutaneous fat. I bluntly dissected down to the fascia. The fascia was elevated with Christian's and incised sharply with Metzenbaum scissors. The peritoneum was elevated and incised sharply as well. Entry into the abdomen was palpated digitally. A 12 mm [place] trocar was placed into the abdomen. The abdomen was insufflated, and I placed a 5 mm 30-degree scope inside. I inspected the area underneath my initial trocar placement. No damage to surrounding structures was noted. The patient was placed into reverse Trendelenburg position and airplaned slightly to the left. 5 mm trocars were placed in the following locations under direct visualization; one in the epigastric area, one in the right flank, and one 2 fingerbreadths below the right subcostal margin in the midclavicular line. The dome of the gallbladder was grasped and elevated. There were omental adhesions along the body of the gallbladder. These were taken down with hook cautery and blunt dissection. Once these adhesions were removed. I grasped the infundibulum and continued my dissection along the cystic duct and artery. I cleared away all the surrounding tissue from this area. I then dissected one-third of the way up the cystic plate. Once my critical view was achieved, a photograph was taken. I doubly clipped and ligated the cystic duct and artery. I then carried my dissection of the cystic plate the gallbladder from the liver bed. Once it was completely dissected free, the gallbladder was placed in an Endo Catch bag. I inspected my operative field. Small bleeding points were cauterized and hemostasis was achieved. There was no evidence of bile leakage. The 5 mm trocars were removed under direct visualization and the abdomen allowed to desufflate. The 12 mm trocar as well as the Endo Catch bag were then removed through the infraumbilical port site. The gallbladder was then sent to pathology. The fascia at the infraumbilical port site was closed with interrupted 0 Vicryl sutures. The subcutaneous fat layer was closed with a running 3-0 Vicryl stitch. The skin was closed with a running 4-0 Monocryl stitch. 5 mm trocar sites were closed with interrupted 4-0 Monocryl sutures. Dermabond and sterile dressings were applied. The patient tolerated the procedure well. The patient was extubated and taken to PACU in stable condition. All counts were complete and correct at the end of the case. BONI NJ /[id number]
== END 2020-06-27 13:26 | disposition home or self-care (01) ==
LOC: MW.SDS 06:45
PROVIDERS: ATTEND Surgery
DX: K81.1 Chronic cholecystitis (principal); K82.8 Other specified diseases of gallbladder; E66.9 Obesity, unspecified; Z88.1 Allergy status to other antibiotic agents; Z98.890 Other specified postprocedural states; Z68.36 Body mass index [BMI] 36.0-36.9, adult
CPT/HCPCS: 47562; A9270; J0690; J1100; J1170; J2001; J2250; J2405; J2550; J2704; J3010; J3490; J7120; 00790; 88304